=== PATIENT | male | born 1930 | race Caucasian/White ===

== ENCOUNTER 2020-03-03 09:19 | Day surgery (SDC) | payer MEDICARE, OTHER ==
--- NOTE | 2020-02-27 12:36 | PREOP ---
ADMISSION DATE: 03/03/2020 SURGICAL DATE: 03/03/2020, right cataract removal and intraocular lens placement; 03/17/2020, left cataract removal and intraocular lens placement. SITE: [facility]. CLINICAL INDICATION: Impaired vision. ANESTHESIA: Local with anesthesia standby. PROVIDER OF RECORD: Rosario Carey MD, Ophthalmology. CONSULTING PHYSICIAN: Hero Ta MD, Family Medicine. HISTORY OF PRESENT ILLNESS: Woodrow Saenz is an 89-year-old male who was seen at [facility] on 02/27/2020 for preop examination. Scheduled for upcoming cataract surgery, right eye on 03/03/2020, left eye 03/17/2020 for refractive impairments. Please see Dr. Carey's accompanying notes. Risks and benefits per Dr. Carey. MEDICATIONS: Daily medications include: 1. Metformin 500 mg 1 p.o. b.i.d., NIDDM. 2. P.r.n. Aleve. ALLERGIES: Gentamicin. PAST HEALTH: Surgically include left total knee arthroplasty for DJD, right hip fracture with total hip arthroplasty, and previous toe arthritis surgery. No other operative procedures, hospitalizations, unusual childhood diseases, major injuries, or fractures. He is on oral therapy for diabetes with good control. SOCIAL HISTORY: since June 2019. Retired, had been in the oil industry. Three children, 2 boys and 1 girl. Smoked until 1965, 2 to 3 alcohol drinks per week. No smoking, no vaping, no chewing tobacco. FAMILY HISTORY: Noncontributory. REVIEW OF SYSTEMS: Other than HPI, feeling well. Few aches and pains, but doing well. PHYSICAL EXAMINATION: VITAL SIGNS: 98.5, 130/72, weight 207, respirations 86 and regular, respirations 16. GENERAL: Elderly gentleman, cooperative, conversant, appears his stated age. Capitan for age. HEENT: Funduscopic benign. Revealed lens opacities. Normal conjunctivae. Bright tympanic membranes. Decreased hearing. Clear nasal discharge. Mouth and oropharynx clear. Good dentition for age. Tongue midline. Good gag reflex. No loose teeth. NECK: Benign. Thyroid small. CHEST: Clear in all lung louis. No adventitious sounds. HEART: No ectopy or murmur on auscultation. BREASTS: Normal male breasts. ABDOMEN: Benign. No hepatosplenomegaly. No surgical scars. GENITOURINARY: Not indicated. RECTAL: Not indicated. LABORATORY STUDIES: Not indicated. ASSESSMENT: Preoperative examination for upcoming cataract surgery. No contraindications. SECONDARY DIAGNOSES: 1. Right hip fracture with total hip arthroplasty. 2. Total knee arthroplasty degenerative joint disease. 3. Diabetes mellitus. 4. Gentamicin allergy. PLAN: Risks, benefits, and expectations per Dr. Carey. No contraindications. Medications can be held in the morning of procedure. /[id number] /RANJITL
[2020-03-03] MEDS ORDERED: fentaNYL 100 MCG/2 ML SDV IV ONE (09:20)
[2020-03-03] MEDS ORDERED: Midazolam 1 MG/ML 2 ML SDV IV ONE (09:20)
[2020-03-03] MEDS ORDERED: Lactated Ringers 1,000 ML IV PRN (09:30)
[2020-03-03] MEDS ORDERED: Sodium Chloride 0.9% 10 ML Syringe FLUSH PRN (09:30)
[2020-03-03] MEDS ORDERED: Lactated Ringers 1,000 ML IV SCH (10:30)
[2020-03-03] MEDS ORDERED: acetaZOLAMIDE 500 MG Cap.ER PO ONE (11:30)
[2020-03-03 11:41] VITALS: PULSE 78
[2020-03-03 11:42] VITALS: BP 159/83
--- NOTE | 2020-03-04 15:07 | OR ---
DATE OF OPERATION: 03/03/2020 SURGEON: Rosario Carey MD PREOPERATIVE DIAGNOSIS: Visually significant cataract, right eye. POSTOPERATIVE DIAGNOSIS: Visually significant cataract, right eye. PROCEDURES PERFORMED: Phacoemulsification with intraocular lens placement, right eye. ASSISTANTS: None. ANESTHESIA: Local with sedation. COMPLICATIONS: None. BLOOD LOSS: None. IMPLANTS: Dariusz ACU0T0 22.0 diopter lens implanted. CDE: 3.82. DESCRIPTION OF PROCEDURE: After risks and benefits were reviewed with the patient, consent was obtained in the preoperative area, and the operative eye was marked with a surgical pen. In the preoperative area, a pledget was used to dilate the pupil consisting of a mixture of phenylephrine 10%, cyclopentolate 2%, moxifloxacin 0.5%, and bupivacaine 0.75%. The patient was taken to the operating room, where a time-out was performed, and the patient was placed under monitored anesthesia care. Topical tetracaine was used for anesthesia. The operative eye was prepped and draped for ophthalmic surgery, and the microscope was brought into position and focused. A paracentesis incision was made, followed by injection of preservative-free 1% lidocaine into the anterior chamber, followed by injection of Viscoat into the anterior chamber. A microkeratome blade was used to make a corneal limbal incision temporally. A cystotome was used to make the beginning of the capsulorrhexis, which was carried around 360 degrees in a curvilinear fashion using Utrata forceps. A [place] cannula with BSS was used to hydrodissect and hydrodelineate the nucleus. The nucleus was removed in a divide and conquer manner using phacoemulsification. Irrigation and aspiration were used to remove the remaining cortical material. Provisc was used to inflate the capsular bag, and a pre-loaded Dariusz ACU0T0 22.0 diopter lens, serial number [id number] was injected into the capsular bag. A Sinskey hook was used to position and center the lens. Next, irrigation and aspiration was used to remove any remaining viscoelastic and cortical material from the anterior chamber. BSS on a cannula was used to inflate the anterior chamber and hydrate the wound. The wound was checked and found to be watertight. 1 mg of Moxifloxacin was injected into the anterior chamber. Drapes were removed and the eye was cleaned. A drop of brimonidine 0.15% and a drop of TobraDex was placed. The eye was shielded, and the patient was taken to the recovery room in stable condition. CC: MD CHRISTINE LAWSON OD /[id number] DANNIE/VENITA
== END 2020-03-03 11:59 | disposition home or self-care (01) ==
LOC: FB.SDS 09:19
PROVIDERS: ATTEND Ophthalmology
DX: E11.36 Type 2 diabetes mellitus with diabetic cataract (principal); H25.813 Combined forms of age-related cataract, bilateral; H35.30 Unspecified macular degeneration; Z96.641 Presence of right artificial hip joint; Z88.1 Allergy status to other antibiotic agents; Z96.652 Presence of left artificial knee joint; Z87.891 Personal history of nicotine dependence; Z79.84 Long term (current) use of oral hypoglycemic drugs
CPT/HCPCS: 66984; A9270; J2250; J3010; J7120; V2632; 00142-QZ

== ENCOUNTER 2020-03-17 07:29 | Day surgery (SDC) | payer MEDICARE, OTHER ==
[2020-03-17] MEDS ORDERED: Midazolam 1 MG/ML 2 ML SDV IV ONE (07:30)
[2020-03-17] MEDS ORDERED: fentaNYL 100 MCG/2 ML SDV IV ONE (07:30)
[2020-03-17] MEDS ORDERED: Sodium Chloride 0.9% 10 ML Syringe FLUSH PRN (07:30)
[2020-03-17] MEDS ORDERED: Lactated Ringers 1,000 ML IV PRN (07:30)
[2020-03-17] MEDS ORDERED: acetaZOLAMIDE 500 MG Cap.ER PO ONE (09:30)
[2020-03-17 09:44] VITALS: BP 150/76; PULSE 82
--- NOTE | 2020-03-17 13:27 | OR ---
DATE OF OPERATION: 03/17/2020 SURGEON: Rosario Carey MD PREOPERATIVE DIAGNOSIS: Visually significant cataract, left eye. POSTOPERATIVE DIAGNOSIS: Visually significant cataract, left eye. PROCEDURES PERFORMED: Phacoemulsification with intraocular lens placement, left eye. ASSISTANTS: None. ANESTHESIA: Local with sedation. COMPLICATIONS: None. BLOOD LOSS: None. IMPLANTS: Dariusz ACU0T0 23.0 diopter lens implanted. CDE: 2.37. DESCRIPTION OF PROCEDURE: After risks and benefits were reviewed with the patient, consent was obtained in the preoperative area, and the operative eye was marked with a surgical pen. In the preoperative area, a pledget was used to dilate the pupil consisting of a mixture of phenylephrine 10%, cyclopentolate 2%, moxifloxacin 0.5%, and bupivacaine 0.75%. The patient was taken to the operating room, where a time-out was performed, and the patient was placed under monitored anesthesia care. Topical tetracaine was used for anesthesia. The operative eye was prepped and draped for ophthalmic surgery, and the microscope was brought into position and focused. A paracentesis incision was made, followed by injection of preservative-free 1% lidocaine into the anterior chamber, followed by injection of Viscoat into the anterior chamber. A microkeratome blade was used to make a corneal limbal incision temporally. A cystotome was used to make the beginning of the capsulorrhexis, which was carried around 360 degrees in a curvilinear fashion using Utrata forceps. A [place] cannula with BSS was used to hydrodissect and hydrodelineate the nucleus. The nucleus was removed in a divide and conquer manner using phacoemulsification. Irrigation and aspiration were used to remove the remaining cortical material. Provisc was used to inflate the capsular bag, and a pre-loaded Dariusz ACU0T0 23.0 diopter lens, serial #[id number] was injected into the capsular bag. A Sinskey hook was used to position and center the lens. Next, irrigation and aspiration was used to remove any remaining viscoelastic and cortical material from the anterior chamber. BSS on a cannula was used to inflate the anterior chamber and hydrate the wound. The wound was checked and found to be watertight. 1 mg of Moxifloxacin was injected into the anterior chamber. Drapes were removed and the eye was cleaned. A drop of brimonidine 0.15% and a drop of TobraDex was placed. The eye was shielded, and the patient was taken to the recovery room in stable condition. CC: NAHOMY DURAN MD /[id number] DANNIE/VENITA
== END 2020-03-17 09:53 | disposition home or self-care (01) ==
LOC: FB.SDS 07:29
PROVIDERS: ATTEND Ophthalmology
DX: E11.36 Type 2 diabetes mellitus with diabetic cataract (principal); H25.812 Combined forms of age-related cataract, left eye; H35.30 Unspecified macular degeneration; Z88.1 Allergy status to other antibiotic agents; Z96.641 Presence of right artificial hip joint; Z96.652 Presence of left artificial knee joint; Z98.41 Cataract extraction status, right eye; Z87.891 Personal history of nicotine dependence
CPT/HCPCS: 00142; 66984; 82962; A9270; J2250; J3010; J7120; V2632